=== PATIENT | male | born 1965 | race Caucasian/White ===

== ENCOUNTER 2019-04-05 17:22 | Emergency (ER) | payer BC ==
[~2019-04-05] VITALS: Ht 177.8 cm; Wt 74.8 kg
[2019-04-05 17:28] VITALS: BP 147/91
[2019-04-05] MEDS ORDERED: LIDOCAINE 1%-EPI 1:100,000 20 ML VIAL ONE (17:38)
[2019-04-05] MEDS ORDERED: ONDANSETRON 4 MG TAB.RAPDIS SL ONE (18:00)
[2019-04-05] MEDS ORDERED: MAG HYDROX/AL HYDROX/SIMETH 30 ML UDC PO ONE (18:00)
[2019-04-05] MEDS ORDERED: LIDOCAINE 1%-EPI 1:100,000 20 ML VIAL TP ONE (18:00)
[2019-04-05] MEDS ORDERED: TDAP [DIPH/PERTUSSIS/TET] 0.5 ML VIAL IM ONE ×2 (18:00→18:06)
[2019-04-05] MEDS ORDERED: LIDOCAINE VISCOUS 2% UD 15 ML UDC MM ONE (18:00)
[2019-04-05] MEDS ORDERED: ACETAMINOPHEN ES 500 MG TABLET PO ONE (18:00)
[2019-04-05] MEDS ORDERED: FAMOTIDINE (20 MG) 20 MG TABLET PO ONE (18:00)
[2019-04-05] MEDS ORDERED: MAG HYDROX/AL HYDROX/SIMETH 30 ML UDC ONE (18:05)
[2019-04-05] MEDS ORDERED: ACETAMINOPHEN ES 500 MG TABLET ONE (18:05)
[2019-04-05] MEDS ORDERED: LIDOCAINE VISCOUS 2% UD 15 ML UDC ONE (18:05)
[2019-04-05] MEDS ORDERED: FAMOTIDINE (20 MG) 20 MG TABLET ONE (18:05)
[2019-04-05] MEDS ORDERED: ONDANSETRON 4 MG TAB.RAPDIS ONE (18:06)
== END 2019-04-05 18:54 | disposition home or self-care (01) ==
LOC: ER 17:25
DX: S01.01XA Laceration without foreign body of scalp, initial encounter (principal); R55 Syncope and collapse; R51 Headache; X58.XXXA Exposure to other specified factors, initial encounter; Y93.89 Activity, other specified; Y92.89 Other specified places as the place of occurrence of the external cause; Y99.8 Other external cause status
CPT/HCPCS: 12002; 70450; 90471; 90715; 99284; A6403; J3490; Q0162

== ENCOUNTER 2019-10-18 08:16 | Emergency (ER) | payer BC, OTHER ==
[~2019-10-18] VITALS: Ht 177.8 cm; Wt 74.8 kg
--- NOTE | 2019-10-18 08:27 | NUR ---
patient came in to the er c/o right shoulder pain s/p fell off 3 steps high ladder yesterday, -ko. On room air, breathing evenly and unlabored. will continue to monitor accordingly.
[2019-10-18] MEDS ORDERED: IBUPROFEN 400 MG TABLET ONE (08:38)
--- NOTE | 2019-10-18 08:48 | NUR ---
devante at bedside for xray
[2019-10-18] MEDS ORDERED: IBUPROFEN 400 MG TABLET PO ONE (09:00)
[2019-10-18] MEDS ORDERED: PROPOFOL 200 MG/20 ML VIAL IV ONE (09:30)
[2019-10-18] MEDS ORDERED: IV NS 0.9% 1,000 ML BAG IV ONE (09:30)
[2019-10-18] MEDS ORDERED: PROPOFOL 20 ML IV ONE (09:31)
--- NOTE | 2019-10-18 09:32 | NUR ---
DR BURNETTE AT BEDSIDE TO DISCUSS PROCEDURE WITH PATIENT INCLUDING THE RISKS AND BENEFITS. PATIENT SIGNED CONSENT AFTER.
--- NOTE | 2019-10-18 09:35 | NUR ---
PATIENT PREPARED FOR PROCEDURE, MD, RT AND RN AT BEDSIDE
--- NOTE | 2019-10-18 09:41 | NUR ---
patient awake after procedure, breathing even and unlabored, aao X 4. VSS
--- NOTE | 2019-10-18 09:45 | NUR ---
shoulder sling placed by tech
--- NOTE | 2019-10-18 09:54 | NUR ---
PATIENT WHEELED BACK VIA GURNEY FROM XRAY BY RN
--- NOTE | 2019-10-18 10:38 | NUR ---
IV removed. Catheter intact and site benign. Pressure and 4x4 applied to site. No bleeding noted. Patient discharged to home in stable condition. Written and verbal after care instructions given. Patient verbalizes understanding of instruction.
[2019-10-18 10:41] VITALS: BP 130/71
== END 2019-10-18 10:38 | disposition home or self-care (01) ==
LOC: ER 08:22
DX: S43.084A Other dislocation of right shoulder joint, initial encounter (principal); W11.XXXA Fall on and from ladder, initial encounter; Y93.89 Activity, other specified; Y92.89 Other specified places as the place of occurrence of the external cause; Y99.8 Other external cause status
CPT/HCPCS: 23650; 73020; 73030; 99152; 99285; J2704; J7030; G0500

== ENCOUNTER 2020-02-25 20:37 | Emergency (ER) | payer OTHER ==
[~2020-02-25] VITALS: Ht 177.8 cm; Wt 74.8 kg
--- NOTE | 2020-02-25 20:41 | NUR ---
PT CAME TO THE ED FOR POSSIBLE R SHOULDER DISLOCATION S/P WORKING OUT. PT AAOX4, VSS, RESPIRATIONS EVEN AND UNLABORED ON RA W/ NAD NOTED. PT CONNECTED TO THE MONITOR AND POX
--- NOTE | 2020-02-25 20:57 | NUR ---
AMADOR SHERMAN AT BEDSIDE
--- NOTE | 2020-02-25 21:04 | NUR ---
X RAY AT BED SIDE
--- NOTE | 2020-02-25 21:10 | NUR ---
LAC 18G IV LINE STARTED W/ GOOD BLOOD RETURN
[2020-02-25] MEDS ORDERED: KETAMINE HCL (500MG/10ML) 50 MG/ML VIAL ONE (21:24)
--- NOTE | 2020-02-25 21:35 | NUR ---
WASTED 387.5 MG OF KETAMINE W/ ROSSY SHERMAN.
--- NOTE | 2020-02-25 21:50 | NUR ---
CONSENT OBTAINED FOR MODERATE SEDATION.
--- NOTE | 2020-02-25 21:57 | NUR ---
XRAY AT BEDSIDE
[2020-02-25] MEDS ORDERED: KETAMINE HCL (500MG/10ML) 50 MG/ML VIAL IV ONE (22:00)
--- NOTE | 2020-02-25 23:03 | NUR ---
Patient discharged to home in stable condition. Written and verbal after care instructions given. Patient verbalizes understanding of instruction.IV removed. Catheter intact and site benign. Pressure and 4x4 applied to site. No bleeding noted.pt. ambulatory with a steady gait
[2020-02-25 23:04] VITALS: BP 150/70
== END 2020-02-25 23:05 | disposition home or self-care (01) ==
LOC: ER 20:42
DX: M24.411 Recurrent dislocation, right shoulder (principal)
CPT/HCPCS: 23650; 73030 ×2; 99152; 99285; J3490; G0500

== ENCOUNTER 2020-10-10 14:20 | Emergency (ER) | payer BC ==
[~2020-10-10] VITALS: Ht 172.7 cm; Wt 72.1 kg
--- NOTE | 2020-10-10 14:30 | NUR ---
Patient came in to the er c/o right shoulder pain or possible dislocation. On room air, breathing evenly and unlabored. Connected to the monitor and pulse ox. kept comfortable, will continue to monitor accordingly.
[2020-10-10] MEDS ORDERED: FENTANYL PF 100MCG/2ML AMPUL ONE (14:47)
[2020-10-10] MEDS ORDERED: MIDAZOLAM HCL 5 MG/5ML VIAL ONE (14:47)
[2020-10-10] MEDS ORDERED: FENTANYL PF 100MCG/2ML AMPUL IV ONE (15:00)
[2020-10-10] MEDS ORDERED: MIDAZOLAM HCL 2 MG/2ML VIAL IV ONE (15:00)
[2020-10-10] MEDS ORDERED: HYDR-3980 PO (16:00)
[2020-10-10 16:31] VITALS: BP 120/74
--- NOTE | 2020-10-10 16:31 | NUR ---
Patient discharged to home in stable condition. Written and verbal after care instructions given. Patient verbalizes understanding of instruction.IV removed. Catheter intact and site benign. Pressure and 4x4 applied to site. No bleeding noted.
== END 2020-10-10 16:31 | disposition home or self-care (01) ==
LOC: ER 14:23
DX: S43.084A Other dislocation of right shoulder joint, initial encounter (principal); X50.0XXA Overexertion from strenuous movement or load, initial encounter; Y93.89 Activity, other specified; Y92.89 Other specified places as the place of occurrence of the external cause; Y99.8 Other external cause status
CPT/HCPCS: 23650; 73030 ×2; 99152; 99285; J2250; J3010; G0500